=== PATIENT | male | born 1975 | race American Indian/Alaskan Native ===

== ENCOUNTER 2021-01-05 09:07 | Outpatient (CLI) | payer OTHER ==
--- NOTE | 2021-01-05 12:35 | XRay Report ---
BILATERAL HAND HISTORY: Pain COMPARISON: None. TECHNIQUE: 2 views of the bilateral hands were obtained. FINDINGS: Bones: No fracture or dislocation. Joint spaces: Maintained. Soft tissues: No significant abnormality. Additional findings: None. IMPRESSION: Unremarkable hand radiographs. No evidence of acute osseous abnormality or significant degenerative c hange. Signer Name: Christiano Rios MD Signed: 01/05/2021 12:03 PM Workstation Name: [id number]
--- NOTE | 2021-01-05 12:35 | XRay Report ---
LEFT SHOULDER HISTORY: Pain. COMPARISON: None. TECHNIQUE: 3 views of the left shoulder were obtained. FINDINGS Bones: Abnormal irregular ossifications along the posterior lateral aspect of the left humeral head/n dawna. There is a faint sclerotic density extending through the base of the humeral head. The appearanc e may reflect posttraumatic deformity. Recommend clinical correlation with patient's history of any t rauma to this region. Joint spaces: Moderate glenohumeral osteoarthritic change and to lesser extent acromioclavicular arth ropathy. Soft tissues: No significant abnormality. Additional findings: None. IMPRESSION: Abnormal irregular ossifications along the posterior lateral aspect of the left humeral head/neck. A faint sclerotic density is noted extending through the base of the humeral head. The appearance may r eflect posttraumatic deformity. Recommend clinical correlation with patient's history of any trauma t o this region. If the patient does not have any history of trauma, additional imaging would be recomm ended to exclude the presence of underlying neoplasm. Signer Name: Christiano Rios MD Signed: 01/05/2021 11:36 AM Workstation Name: [id number]
== END 2021-01-05 09:08 | disposition home or self-care (01) ==
LOC: XRAY 09:07
PROVIDERS: ATTEND Internal Medicine
DX: M19.011 Primary osteoarthritis, right shoulder (principal); M19.012 Primary osteoarthritis, left shoulder; M79.642 Pain in left hand; M79.641 Pain in right hand